=== PATIENT | female | born 1970 | race Caucasian/White ===

== ENCOUNTER 2021-11-11 11:42 | Emergency (ER) | payer MEDICAID ==
[~2021-11-11] VITALS: Ht 165.1 cm; Wt 85.0 kg
[2021-11-11 11:44] VITALS: BP 152/82
[2021-11-11] MEDS ORDERED: ACETAMINOPHEN 325MG TABLET PO ONE (12:15)
[2021-11-11] MEDS ORDERED: TETANUS, DIPHTHERIA, PERTUSSIS VAC/PF 0.5ML (>10YR OLD) IM ONE (13:00)
[2021-11-11] MEDS ORDERED: IBUP-2029 MT (15:21)
== END 2021-11-11 15:40 | disposition home or self-care (01) ==
LOC: ER 11:42
DX: S60.812A Abrasion of left wrist, initial encounter (principal); S60.811A Abrasion of right wrist, initial encounter; T14.8XXA Other injury of unspecified body region, initial encounter; M79.10 Myalgia, unspecified site; Y04.0XXA Assault by unarmed brawl or fight, initial encounter; W17.89XA Other fall from one level to another, initial encounter; Y93.89 Activity, other specified; Y92.89 Other specified places as the place of occurrence of the external cause
CPT/HCPCS: 70486; 71045; 72128; 72131; 73110; 73130; 90471; 90715; 93005; 99285